=== PATIENT | male | born 1980 | race Caucasian/White ===

== ENCOUNTER 2018-04-30 15:37 | Emergency (ER) | payer OTHER, SELFPAY ==
[2018-04-30 15:38] VITALS: BP 138/86; PULSE 68; RESP 14; TEMP 37.3; O2SAT 100; BMI 22.5
--- NOTE | 2018-04-30 16:13 | ED.VISSUMM ---
- ER Visit Summary Date of Service: 04/30/18 Chief Complaint: Dizziness with multiple complaints History of Present Illness: The patient is a 37 M who presents for multiple complaints for the last 3 days. Patient states 3 days ago he had a syncopal episode while working at his computer. Afterwards he had a frontal headache that felt like pressure as well as dizziness. His head felt hot. He rested for the rest of the day and felt better 2 days ago. His headache returned later that day and he went to [facility] physicians for an evaluation. He was feeling better afterwards and was told he should be seen at the emergency department. He did not come in because he felt better. He felt fine until yesterday when he had a brief headache, that would last approximately 10-15 minutes. Still the frontal headache with pressure. Today patient developed dizziness 30 minutes prior to presentation. He also developed chest pain and shortness of breath. He is complaining currently of headache, chest pain, shortness of breath, neck pain, and dizziness. He has not had similar symptoms in the past. Medical history remarkable for panic attacks. He denies any personal or family history of coronary artery disease. No history of diabetes, hypertension, hypercholesterolemia. He does not use tobacco or drugs. He drinks 1 glass of wine today. Physical Examination: Vital signs: afebrile, hemodynamically stable, no hypoxia on room air General: well nourished, well developed, in no distress Skin: warm, dry, no rash, no pallor HEENT: normocephalic and atraumatic; PERRL, EOMI, moist mucous membranes no oropharyngeal lesions or exudates. Neck is supple, nontender, no lymphadenopathy, no meningismus Cardiovascular: regular rate and rhythm without murmurs, no peripheral edema, 2+ pulses all distal extremities Respiratory: No increased work of breathing, lungs are clear to auscultation bilaterally, no rales, rhonchi or wheezing Abdominal: Abdomen is soft, nontender with normoactive bowel sounds, no guarding or rebound, no masses MSK: Moves all extremities, no deformities, normal strength no edema Neuro: Awake and alert, oriented ?4. No facial droop, sensation and motor function intact and symmetric Test Results: Abnormal Lab Results 04/30/18 04/30/18 04/30/18 16:29 16:29 16:29 WBC 5.5 RBC 4.78 Hgb 14.8 Hct 43.1 MCV 90.2 MCH 31.0 MCHC 34.3 RDW 12.2 RDW Differential 39.4 Plt Count 107 L MPV 12.1 H Immature Gran % (Auto) 0.200 Neut % (Auto) 63.2 Lymph % (Auto) 28.3 [place] % (Auto) 6.4 Eos % (Auto) 1.5 Baso % (Auto) 0.4 Absolute Neuts (auto) 3.5 Absolute Lymphs (auto) 1.55 Total Counted Not Reportable PT 14.0 INR 1.1 APTT 32.1 D-Dimer Quant (PE/DVT) < 0.27 L Sodium 142 Potassium 4.3 Chloride 104 Carbon Dioxide 30.0 Anion Gap 8 BUN 15 Creatinine 1.17 Estim Creat Clear Calc 112.00 Est GFR (MDRD) Af Amer 90 Est GFR (MDRD) Non-Af 75 BUN/Creatinine Ratio 12.8 Glucose 124 H Lactic Acid Calcium 8.8 Total Bilirubin 0.40 AST 20 ALT 44 Alkaline Phosphatase 103 Troponin I < 0.015 Total Protein 7.2 Albumin 4.2 Globulin 3.0 Albumin/Globulin Ratio 1.4 Urine Color Urine Clarity Urine pH Ur Specific [place] Urine Protein Urine Glucose (UA) Urine Ketones Urine Occult Blood Urine Nitrite Urine Bilirubin Urine Urobilinogen Ur Leukocyte Esterase Urine RBC Urine WBC Ur Squamous Epith Cells Urine Bacteria Urine Mucus 04/30/18 04/30/18 16:29 17:40 WBC RBC Hgb Hct MCV MCH MCHC RDW RDW Differential Plt Count MPV Immature Gran % (Auto) Neut % (Auto) Lymph % (Auto) [place] % (Auto) Eos % (Auto) Baso % (Auto) Absolute Neuts (auto) Absolute Lymphs (auto) Total Counted PT INR APTT D-Dimer Quant (PE/DVT) Sodium Potassium Chloride Carbon Dioxide Anion Gap BUN Creatinine Estim Creat Clear Calc Est GFR (MDRD) Af Amer Est GFR (MDRD) Non-Af BUN/Creatinine Ratio Glucose Lactic Acid 1.4 Calcium Total Bilirubin AST ALT Alkaline Phosphatase Troponin I Total Protein Albumin Globulin Albumin/Globulin Ratio Urine Color Yellow Urine Clarity Clear Urine pH 6.5 Ur Specific [place] 1.015 Urine Protein Negative Urine Glucose (UA) Normal Urine Ketones Negative Urine Occult Blood Negative Urine Nitrite Negative Urine Bilirubin Negative Urine Urobilinogen Normal Ur Leukocyte Esterase Negative Urine RBC 0 SEEN Urine WBC 0 SEEN Ur Squamous Epith Cells 0 SEEN Urine Bacteria RARE Urine Mucus RARE Clinical Impression(s) from Imaging Studies Brain CT 04/30/18 16:09 IMPRESSION: Normal unenhanced CT scan of the brain. Electronically Signed: Vinicio Dominguez MD at 17:40 EDT , Service support , Chest X-Ray 04/30/18 17:15 IMPRESSION: No acute cardiopulmonary process. Electronically Signed: Noe Gongora, at 17:35 EDT Tel , Service support , Medications Given Discontinued Medications Diphenhydramine HCl (Benadryl) 25 mg IV X1 ONE Stop: 04/30/18 16:14 Last Admin: 04/30/18 17:56 Dose: 25 mg Sodium Chloride () 1,000 mls @ 1,000 mls/hr IV .Q1H ONE Stop: 04/30/18 17:08 Last Admin: 04/30/18 17:56 Dose: 1,000 mls/hr Ketorolac Tromethamine (Toradol) 15 mg IV X1 ONE Stop: 04/30/18 16:10 Last Admin: 04/30/18 17:56 Dose: 15 mg Metoclopramide HCl (Reglan) 10 mg IV X1 ONE Stop: 04/30/18 16:10 Last Admin: 04/30/18 17:56 Dose: 10 mg Emergency Department Course and Treatment: Patient presents with multiple vague complaints over the last 3 days, now with acute development of dizziness, chest pain and shortness of breath along with his headache. Workup was performed to evaluate for intracranial pathology, infectious pathology, cardiac pathology, and d-dimer to evaluate for possible pulmonary embolism. Patient has no risk factors for coronary artery disease and is low risk for PE. No recent travel or surgery, history of VTE or family history of same. D-dimer was negative. Troponin negative. EKG showed no ischemic changes or dysrhythmias. Labs were remarkable for chronic thrombocytopenia, no anemia or leukocytosis, no electrolyte derangements, no hepatic or renal derangements, urinalysis negative for infection, normal lactate. Chest x-ray showed no acute process and CT the head showed no intracranial hemorrhage or mass. Patient was given a migraine cocktail and had resolution of his headache afterwards. There was no underlying cause noted for his myriad of complaints other than possibly a viral syndrome. Patient was discharged home in improved condition with instructions for supportive care and return precautions. Treatment Plan: [] Disposition: [] Impression: Viral syndrome, headache (resolved) This note was generated with [employer] dictation software. It may contain incorrect words, spelling, and punctuation that were not noted in review of the chart prior to signing ED Disposition - Plan for ED Patient: Disposition: Home or Assisted Living Chief Complaint: General Illness Instructions: ED Cephalgia Unspecified, ED Viral Syndrome Referrals: Hiro Whitmore MD [Primary Care Provider] - 3-5 Days if not improving Additional Instructions: Use [id number] pain medications such as Tylenol or Motrin as needed for further headache, fever and other aches and pains. Drink plenty of fluids to stay hydrated. If you have any worsening of your condition or any new concerning symptoms, please return immediately to the emergency department for another evaluation.
--- NOTE | 2018-04-30 16:16 | ED.DCSUM_ITS ---
- ER Visit Summary Date of Service: 04/30/18 Chief Complaint: Dizziness with multiple complaints History of Present Illness: The patient is a 37 M who presents for multiple complaints for the last 3 days. Patient states 3 days ago he had a syncopal episode while working at his computer. Afterwards he had a frontal headache that felt like pressure as well as dizziness. His head felt hot. He rested for the rest of the day and felt better 2 days ago. His headache returned later that day and he went to [facility] physicians for an evaluation. He was feeling better afterwards and was told he should be seen at the emergency department. He did not come in because he felt better. He felt fine until yesterday when he had a brief headache, that would last approximately 10- 15 minutes. Still the frontal headache with pressure. Today patient developed dizziness 30 minutes prior to presentation. He also developed chest pain and shortness of breath. He is complaining currently of headache, chest pain, shortness of breath, neck pain, and dizziness. He has not had similar symptoms in the past. Medical history remarkable for panic attacks. He denies any personal or family history of coronary artery disease. No history of diabetes, hypertension, hypercholesterolemia. He does not use tobacco or drugs. He drinks 1 glass of wine today. Physical Examination: Vital signs: afebrile, hemodynamically stable, no hypoxia on room air General: well nourished, well developed, in no distress Skin: warm, dry, no rash, no pallor HEENT: normocephalic and atraumatic; PERRL, EOMI, moist mucous membranes no oropharyngeal lesions or exudates. Neck is supple, nontender, no lymphadenopathy, no meningismus Cardiovascular: regular rate and rhythm without murmurs, no peripheral edema, 2 + pulses all distal extremities Respiratory: No increased work of breathing, lungs are clear to auscultation bilaterally, no rales, rhonchi or wheezing Abdominal: Abdomen is soft, nontender with normoactive bowel sounds, no guarding or rebound, no masses MSK: Moves all extremities, no deformities, normal strength no edema Neuro: Awake and alert, oriented ?4. No facial droop, sensation and motor function intact and symmetric Test Results: Abnormal Lab Results 04/30/18 04/30/18 04/30/18 16:29 16:29 16:29 WBC 5.5 RBC 4.78 Hgb 14.8 Hct 43.1 MCV 90.2 MCH 31.0 MCHC 34.3 RDW 12.2 RDW Differential 39.4 Plt Count 107 L MPV 12.1 H Immature Gran % (Auto) 0.200 Neut % (Auto) 63.2 Lymph % (Auto) 28.3 [place] % (Auto) 6.4 Eos % (Auto) 1.5 Baso % (Auto) 0.4 Absolute Neuts (auto) 3.5 Absolute Lymphs (auto) 1.55 Total Counted Not Reportable PT 14.0 INR 1.1 APTT 32.1 D-Dimer Quant (PE/DVT) < 0.27 L Sodium 142 Potassium 4.3 Chloride 104 Carbon Dioxide 30.0 Anion Gap 8 BUN 15 Creatinine 1.17 Estim Creat Clear Calc 112.00 Est GFR (MDRD) Af Amer 90 Est GFR (MDRD) Non-Af 75 BUN/Creatinine Ratio 12.8 Glucose 124 H Lactic Acid Calcium 8.8 Total Bilirubin 0.40 AST 20 ALT 44 Alkaline Phosphatase 103 Troponin I < 0.015 Total Protein 7.2 Albumin 4.2 Globulin 3.0 Albumin/Globulin Ratio 1.4 Urine Color Urine Clarity Urine pH Ur Specific [place] Urine Protein Urine Glucose (UA) Urine Ketones Urine Occult Blood Urine Nitrite Urine Bilirubin Urine Urobilinogen Ur Leukocyte Esterase Urine RBC Urine WBC Ur Squamous Epith Cells Urine Bacteria Urine Mucus 04/30/18 04/30/18 16:29 17:40 WBC RBC Hgb Hct MCV MCH MCHC RDW RDW Differential Plt Count MPV Immature Gran % (Auto) Neut % (Auto) Lymph % (Auto) [place] % (Auto) Eos % (Auto) Baso % (Auto) Absolute Neuts (auto) Absolute Lymphs (auto) Total Counted PT INR APTT D-Dimer Quant (PE/DVT) Sodium Potassium Chloride Carbon Dioxide Anion Gap BUN Creatinine Estim Creat Clear Calc Est GFR (MDRD) Af Amer Est GFR (MDRD) Non-Af BUN/Creatinine Ratio Glucose Lactic Acid 1.4 Calcium Total Bilirubin AST ALT Alkaline Phosphatase Troponin I Total Protein Albumin Globulin Albumin/Globulin Ratio Urine Color Yellow Urine Clarity Clear Urine pH 6.5 Ur Specific [place] 1.015 Urine Protein Negative Urine Glucose (UA) Normal Urine Ketones Negative Urine Occult Blood Negative Urine Nitrite Negative Urine Bilirubin Negative Urine Urobilinogen Normal Ur Leukocyte Esterase Negative Urine RBC 0 SEEN Urine WBC 0 SEEN Ur Squamous Epith Cells 0 SEEN Urine Bacteria RARE Urine Mucus RARE Clinical Impression(s) from Imaging Studies Brain CT 04/30/18 16:09 IMPRESSION: Normal unenhanced CT scan of the brain. Electronically Signed: Vinicio Dominguez MD at 17:40 EDT , Service support , Chest X-Ray 04/30/18 17:15 IMPRESSION: No acute cardiopulmonary process. Electronically Signed: Noe Gongora, at 17:35 EDT Tel , Service support , Medications Given Discontinued Medications Diphenhydramine HCl (Benadryl) 25 mg IV X1 ONE Stop: 04/30/18 16:14 Last Admin: 04/30/18 17:56 Dose: 25 mg Sodium Chloride () 1,000 mls @ 1,000 mls/hr IV .Q1H ONE Stop: 04/30/18 17:08 Last Admin: 04/30/18 17:56 Dose: 1,000 mls/hr Ketorolac Tromethamine (Toradol) 15 mg IV X1 ONE Stop: 04/30/18 16:10 Last Admin: 04/30/18 17:56 Dose: 15 mg Metoclopramide HCl (Reglan) 10 mg IV X1 ONE Stop: 04/30/18 16:10 Last Admin: 04/30/18 17:56 Dose: 10 mg Emergency Department Course and Treatment: Patient presents with multiple vague complaints over the last 3 days, now with acute development of dizziness, chest pain and shortness of breath along with his headache. Workup was performed to evaluate for intracranial pathology, infectious pathology, cardiac pathology, and d-dimer to evaluate for possible pulmonary embolism. Patient has no risk factors for coronary artery disease and is low risk for PE. No recent travel or surgery, history of VTE or family history of same. D-dimer was negative. Troponin negative. EKG showed no ischemic changes or dysrhythmias. Labs were remarkable for chronic thrombocytopenia, no anemia or leukocytosis, no electrolyte derangements, no hepatic or renal derangements, urinalysis negative for infection, normal lactate. Chest x-ray showed no acute process and CT the head showed no intracranial hemorrhage or mass. Patient was given a migraine cocktail and had resolution of his headache afterwards. There was no underlying cause noted for his myriad of complaints other than possibly a viral syndrome. Patient was discharged home in improved condition with instructions for supportive care and return precautions. Treatment Plan: [] Disposition: [] Impression: Viral syndrome, headache (resolved) This note was generated with [employer] dictation software. It may contain incorrect words, spelling, and punctuation that were not noted in review of the chart prior to signing ED Disposition - Plan for ED Patient: Disposition: Home or Assisted Living Chief Complaint: General Illness Instructions: ED Cephalgia Unspecified, ED Viral Syndrome Referrals: Hiro Whitmore MD [Primary Care Provider] - 3-5 Days if not improving Additional Instructions: Use eric-xnf-[id number] pain medications such as Tylenol or Motrin as needed for further headache, fever and other aches and pains. Drink plenty of fluids to stay hydrated. If you have any worsening of your condition or any new concerning symptoms, please return immediately to the emergency department for another evaluation.
[2018-04-30 17:02] LABS: Absolute Lymphocyte Count 1.55 X10^3/ul (0.83-4.51); Absolute Neutrophil Count 3.5 X10^3/uL (2.0-7.7); Basophil# 0.02 X10^3/uL; Basophil% 0.4 % (0-1); Eosinophil# 0.08 X10^3/uL; Eosinophils% 1.5 % (0-5); Hematocrit 43.1 % (40-54); Hemoglobin 14.8 g/dl (13.0-16.5); Lymphocyte # 1.55 X10^3/ul (4.0); Lymphocyte % 28.3 % (19-41); Mean Corp Hgb Conc 34.3 g/gl (32-36); Mean Corpuscular Volume 90.2 fL (80-94); Mean Platelet Vol. 12.1 fl (6.2-12.0); Monocyte# 0.35 X10^3/uL; Monocyte% 6.4 % (0-10); Neutrophil # 3.46 X10^3/uL (2.7-7.7); Neutrophil % 63.2 % (47-70); POSITIVE COUNT NO; POSITIVE DIFFERENTIAL NO; POSITIVE MORPHOLOGY NO; Platelet Count 107 K/mm3 (150-450); RBC Distribution Width CV 12.2 % (11.6-14.6); RBC Distribution Width SD 39.4 fl (35.1-43.9); Red Blood Count 4.78 M/mm3 (4.6-6.2); White Blood Count 5.5 K/mm3 (4.4-11.0)
[2018-04-30 17:03] LABS: International Normalized Ratio 1.1
[2018-04-30 17:04] LABS: Partial Thromboplast Time 32.1 Seconds (24.1-36.2)
[2018-04-30 17:08] LABS: Lactic Acid 1.4 mmol/L (0.4-2.0)
[2018-04-30 17:17] LABS: ALB/GLOB Ratio 1.4 RATIO (0.9-2.4); AST(SGOT) 20 U/L (15-37); Alanine Aminotransfer ALT/SGPT 44 U/L (16-61); Albumin, Serum 4.2 g/dL (3.2-5.0); Alkaline Phosphatase 103 U/L (45-117); Anion Gap 8 (5-15); BUN 15 mg/dL (7-18); BUN/Creat Ratio 12.8 RATIO (10-20); Calcium,Total 8.8 mg/dL (8.5-10.1); Chloride 104 mmol/L (98-107); Creatinine, Serum 1.17 mg/dL (0.70-1.30); EST Glomerular Filtration Rate 75 mL/min (>60); Est Glom Filt Rate - Afr Amer 90 mL/min (>60); Glucose 124 mg/dL (74-106); Potassium 4.3 mmol/L (3.5-5.1); Protein, Total 7.2 g/dL (6.4-8.2); Sodium Level 142 mmol/L (136-145)
[2018-04-30 17:18] LABS: D-Dimer Quantitative (DVT/PE) < 0.27 FEU/ug/m (0.27-0.49)
[2018-04-30 17:49] LABS: Red Blood Cells-Urine 0 SEEN /hpf (0-5); Squamous Epithelial Cells - UA 0 SEEN /hpf (0-5); White Blood Cells 0 SEEN /hpf (0-5)
[2018-04-30] MEDS: Metoclopramide 10 MG/2 ML Vial IV (17:56)
[2018-04-30] MEDS: DiphenhydrAMINE 50 MG/ML Syringe 25 MG IV (17:56)
[2018-04-30] MEDS: Ketorolac 15 MG/ML Vial IV (17:56)
[2018-04-30] MEDS: 0.9% Normal Saline 1,000 ML 1000 ML IV (17:56)
[2018-04-30 17:58] VITALS: BP 130/76; PULSE 60; RESP 16; O2SAT 99
[2018-04-30 18:06] LABS: Color, Urine Yellow (Yellow); Glucose, Dipstick Normal (Normal); Ketone-Dipstick Negative (Negative); Leukocyte Esterase-Dipstick Negative /ul (Negative); Nitrite-Dipstick Negative (Negative); Occult Blood-Urine Negative /ul (Negative); Protein-Dipstick Negative (Negative); Specific Gravity, Urine 1.015 (1.002-1.030); Urine Bilirubin Dipstick Negative (Negative); Urine Clarity Clear (Clear); Urine Urobilinogen Normal (Normal); Urine pH 6.5 (5.0 - 8.0)
[2018-04-30 18:16] LABS: Bacteria RARE /hpf (None Seen); Mucous, Urine RARE /hpf (<or=2+)
[2018-04-30 19:00] VITALS: BP 122/64; PULSE 65; RESP 15; O2SAT 99
--- NOTE | 2018-04-30 19:34 | ED.DEP ---
ED Disposition - Plan for ED Patient: Disposition: Home or Assisted Living Chief Complaint: General Illness Instructions: ED Viral Syndrome, ED Cephalgia Unspecified Referrals: Hiro Whitmore MD [Primary Care Provider] - 3-5 Days if not improving Additional Instructions: Use [id number] pain medications such as Tylenol or Motrin as needed for further headache, fever and other aches and pains. Drink plenty of fluids to stay hydrated. If you have any worsening of your condition or any new concerning symptoms, please return immediately to the emergency department for another evaluation.
[2018-04-30 19:56] VITALS: BP 128/67; PULSE 64; RESP 17
== END 2018-04-30 19:57 | disposition home or self-care (01) ==
PROVIDERS: Emergency Provider Emergency Medicine; Family Provider Family Medicine; PCP Family Medicine
DX: B34.9 Viral infection, unspecified (principal); R51 Headache; R55 Syncope and collapse; R07.9 Chest pain, unspecified; R06.00 Dyspnea, unspecified; M54.2 Cervicalgia; D69.6 Thrombocytopenia, unspecified; F41.0 Panic disorder [episodic paroxysmal anxiety]
CPT/HCPCS: 70450; 71046; 80053; 81001; 83605; 84484; 85025; 85379; 85610; 85730; 93005; 96361; 96374; 96375; 99284; J7030; A4216

== ENCOUNTER → 2018-05-02 15:57 | Outpatient (CLI) | payer OTHER, SELFPAY ==
[2018-05-02 18:01] LABS: Internal QC Validated? YES +Cl - CLEAR BKGD; Monotest Negative (Negative); Record Kit Lot#, Mono 13171517
[2018-05-02 18:13] LABS: Vitamin B12 244 pg/mL (211-911); Vitamin D,25 Hydroxy 18.3 ng/mL (29.95-100.01)
[2018-05-02 18:16] LABS: ALB/GLOB Ratio 1.4 RATIO (0.9-2.4); AST(SGOT) 25 U/L (15-37); Alanine Aminotransfer ALT/SGPT 45 U/L (16-61); Albumin, Serum 4.3 g/dL (3.2-5.0); Alkaline Phosphatase 98 U/L (45-117); Anion Gap 7 (5-15); BUN 13 mg/dL (7-18); BUN/Creat Ratio 13.9 RATIO (10-20); CRP < 2.90 mg/L (0.0-3.0); Calcium,Total 8.6 mg/dL (8.5-10.1); Chloride 105 mmol/L (98-107); Creatinine, Serum 0.93 mg/dL (0.70-1.30); EST Glomerular Filtration Rate 97 mL/min (>60); Est Glom Filt Rate - Afr Amer 117 mL/min (>60); Glucose 80 mg/dL (74-106); Protein, Total 7.3 g/dL (6.4-8.2); Sodium Level 141 mmol/L (136-145); Thyroid Stim Hormone (TSH) 1.17 uIU/mL (0.358-3.74)
[2018-05-02 19:38] LABS: Absolute Lymphocyte Count 1.61 X10^3/ul (0.83-4.51); Absolute Neutrophil Count 2.8 X10^3/uL (2.0-7.7); Basophil# 0.01 X10^3/uL; Basophil% 0.2 % (0-1); Hematocrit 44.3 % (40-54); Lymphocyte # 1.61 X10^3/ul (4.0); Lymphocyte % 32.8 % (19-41); Mean Corp Hgb Conc 33.9 g/gl (32-36); Mean Corpuscular Hgb 31.2 pg (27.0-32.0); Mean Corpuscular Volume 92.1 fL (80-94); Mean Platelet Vol. 11.9 fl (6.2-12.0); Monocyte# 0.35 X10^3/uL; Monocyte% 7.1 % (0-10); Neutrophil # 2.83 X10^3/uL (2.7-7.7); Neutrophil % 57.7 % (47-70); Platelet Count 106 K/mm3 (150-450); RBC Distribution Width CV 12.2 % (11.6-14.6); RBC Distribution Width SD 41.1 fl (35.1-43.9); Red Blood Count 4.81 M/mm3 (4.6-6.2); White Blood Count 4.9 K/mm3 (4.4-11.0)
[2018-05-02 19:47] LABS: POSITIVE COUNT NO; POSITIVE DIFFERENTIAL NO; POSITIVE MORPHOLOGY NO
[2018-05-02 20:32] LABS: Erythrocyte Sedimentation Rate 1 mm/hr (0-15)
[2018-05-07 12:07] LABS: Lyme IgG P18 Ab Absent (.); Lyme IgG P23 Ab Absent (.); Lyme IgG P28 Ab Absent (.); Lyme IgG P30 Ab Absent (.); Lyme IgG P39 Ab Absent (.); Lyme IgG P41 Ab Absent (.); Lyme IgG P45 Ab Absent (.); Lyme IgG P58 Ab Absent (.); Lyme IgG P66 Ab Absent (.); Lyme IgG P93 Ab Absent (.); Lyme IgM P23 Ab Absent (.); Lyme IgM P39 Ab Absent (.); Lyme IgM P41 Ab Absent (.)
[2018-05-09 12:00] LABS: EBV Acute VCA IgM < 36.0 U/mL (0.0-35.9); EBV-VCA IgG > 600.0 U/mL (0.0-17.9); Lyme IgG WB Interpretation Negative (.); Lyme IgM WB Interpretation Negative (.)
== END ==
PROVIDERS: Family Provider Family Medicine; PCP Family Medicine; Visit Provider Family Medicine
DX: R53.83 Other fatigue (principal)
CPT/HCPCS: 36415; 80053; 82306; 82607; 84443; 85025; 85652; 86140; 86308; 86617; 86663; 86664; 86665

== ENCOUNTER → 2018-07-17 10:00 | Outpatient (CLI) | payer OTHER, SELFPAY ==
--- NOTE | 2018-07-13 10:00 | LES_PTH ---
PATIENT: GLENYS LOOMIS LOC: [facility] U#:[id number] AGE/SX: 45/M ROOM: RE07/17/[address]: Dr. Isai Whitmore MD : 1980 BED: DIS: SPEC #: [id number] RECD: 07/17/18 14:01 STATUS: SUZAN ARSEN #: [id number] LC: 07/13/18 10:[address]: Isai Whitmore DEPT: SURGICAL PATHOLOGY RECD BY: Carli Calderon Tissues: Skin of chest Procedures: Surgery Specimen Level IV HEADER OPERATION: Right chest mole excision PRE-OP DIAGNOSIS: Mole changes, rule out melanoma TISSUE SUBMITTED: Right chest mole excision MICROSCOPIC DIAGNOSIS Right chest mole, excision: Inflamed junctional nevus, completely excised in the planes of sections examined. SJ:kwesi 07/18/18 MICROSCOPIC DESCRIPTION Slides are reviewed. GROSS DESCRIPTION Received in fixative is one container labeled with the patient's name and designated right chest mole. The specimen consists of a piece of pelaez-white skin measuring 0.7 x 0.5 cm and up to 0.2 cm in thickness. The skin surface shows a brown round lesion measuring 0.2 cm in greatest dimension. The specimen is inked and submitted entirely in one cassette. It will be sectioned at the time of embedding. / SJ:rg 07/17/18 TC:1 CPT: 26849 ADDENDUM ADDENDUM ADDENDUM ADDENDUM ADDENDUM ADDENDUM 07/25/2018 10:27 ADDENDUM 07/25/2018 10:27 ADDENDUM 07/25/2018 10:27 ADDENDUM 07/25/2018 10:27 ADDENDUM 07/25/2018 10:27 During QC review [address] Steele, the lesion is favored as atypical junctional nevus (mild architectural atypia), completely excised in the planes of sections examined. SJ:kwesi 07/25/18
== END ==
PROVIDERS: Family Provider Family Medicine; PCP Family Medicine; Referring Provider Family Medicine; Visit Provider Family Medicine
DX: D22.5 Melanocytic nevi of trunk (principal)
CPT/HCPCS: 88305

== ENCOUNTER → 2018-08-07 08:19 | Outpatient (CLI) | payer OTHER, SELFPAY ==
[2018-08-07 11:09] LABS: Vitamin B12 432 pg/mL (211-911); Vitamin D,25 Hydroxy 26.7 ng/mL (29.95-100.01)
--- OUTSIDE RECORDS SUMMARY | 2018-09-23 06:12 | XMS RPT_ITS ---
:1980 Author Organization OHIP Care Team Providers Name Role Phone Isai Whitmore Attending Unavailable Isai Whitmore Primary Care Unavailable Isai Whitmore Attending Unavailable Isai Whitmore Referring Unavailable Isai Whitmore Primary Care Unavailable Isai Whitmore Attending Unavailable Isai Whitmore Primary Care Unavailable Isai Whitmore Primary Care Unavailable Shanon Evans Attending Unavailable PROBLEMS PROBLEMS No Problem Records FoundPROCEDURES PROCEDURES No Procedure Records FoundRESULTS RESULTS VITAMIN B12 Collected: 08/07/2018 Status: F Source: [place] 8:20 AM [facility] [place] REPOSITORY Order Comment: Order Date: 05/10/18 Order Info: 2132-9 - B12 Order Info: 13417-1 - VITD25 TYPE CODE TESTS RESULT OUT OF RANGE REFERENCE UNITS LAB L503.0105 211-911 pg/mL Normal Vitamin B12 432 Performed By: #### L503.0105, L506.1000 #### [place] [facility] [address] [place], [address] VITAMIN D,25 HYDROXY Collected: 08/07/2018 Status: F Source: [place] 8:20 AM [facility] [place] REPOSITORY Order Comment: Order Date: 05/10/18 Order Info: 2132-9 - B12 Order Info: 31467-7 - VITD25 TYPE CODE TESTS RESULT OUT OF REFERENCE UNITS RANGE LAB L506.1000 29.95-100.01 ng/mL Low Vitamin D 26.7 25-OH Result Comment: Vitamin D 25(OH) Status Range Deficiency <20 ng/mL (50nmol/L) Insuffciency 20 - 30 ng/mL (50 - 75 nmol/L) Sufficiency 30 - 100 ng/mL (75 - 250 nmol/L) Toxicity >100 ng/mL (>250 nmol/L) Performed By: #### L503.0105, L506.1000 #### [facility] [address] [place], [address] LESION (CHOOSE SITE) Observed: 07/13/2018 Status: F Source: [place] 10:00 AM [facility] [place] REPOSITORY Patient: GLENYS LOOMIS : 1980 (38/M) Acct Num: [id number] Phys: Myranda MORILLO,Golden Unit Num: [id number] Loc: LABSPEC Specimen: [id number] Received: 07/17/18 - 1401 Spec Type: Lesion TISSUES 1 TISSUES: Skin of chest ADDENDUM Addendum Number 1 During QC review [address] Dr[address] Steele, the lesion is favored as atypical junctional nevus (mild architectural atypia), completely excised in the planes of sections examined. SRUTHI:kwesi 07/25/18 Addendum Signed Feliberto Richardson 07/25/18 <signature on file> GROSS DESCRIPTION Received in fixative is one container labeled with the patient's name and designated right chest mole. The specimen consists of a piece of pelaez-white skin measuring 0.7 x 0.5 cm and up to 0.2 cm in thickness. The skin surface shows a brown round lesion measuring 0.2 cm in greatest dimension. The specimen is inked and submitted entirely in one cassette. It will be sectioned at the time of embedding. / SRUTHI:kwesi 07/17/18 TC:1 CPT: 90415 HEADER OPERATION: Right chest mole excision PRE-OP DIAGNOSIS: Mole changes, rule out melanoma TISSUE SUBMITTED: Right chest mole excision MICROSCOPIC DESCRIPTION Slides are reviewed. MICROSCOPIC DIAGNOSIS Right chest mole, excision: Inflamed junctional nevus, completely excised in the planes of sections examined. SJ:kwesi 07/18/18 Signed Feliberto Dylan 07/18/18 <signature on file> Performed By: #### PLES #### [facility] [address] [place], [address] MONOTEST Collected: 05/02/2018 Status: F Source: [place] 4:00 PM [facility] REPOSITORY TYPE CODE TESTS RESULT OUT OF RANGE REFERENCE UNITS LAB L700.5700 Negative Normal MONO Negative Performed By: #### L700.5500 #### [facility] [address] [place], [address] VITAMIN B12 Collected: 05/02/2018 Status: F Source: [place] 4:00 PM [facility] REPOSITORY TYPE CODE TESTS RESULT OUT OF RANGE REFERENCE UNITS LAB L503.0105 211-911 pg/mL Normal Vitamin B12 244 Performed By: #### L503.0105, L506.1000 #### [facility] [address] [place], [address] VITAMIN D,25 HYDROXY Collected: 05/02/2018 Status: F Source: [place] 4:00 PM [facility] REPOSITORY TYPE CODE TESTS RESULT OUT OF REFERENCE UNITS RANGE LAB L506.1000 29.95-100.01 ng/mL Low Vitamin D 18.3 25-OH Result Comment: Vitamin D 25(OH) Status Range Deficiency <20 ng/mL (50nmol/L) Insuffciency 20 - 30 ng/mL (50 - 75 nmol/L) Sufficiency 30 - 100 ng/mL (75 - 250 nmol/L) Toxicity >100 ng/mL (>250 nmol/L) Performed By: #### L503.0105, L506.1000 #### [facility] [place], [address] COMPREHENSIVE METABOLIC Collected: 05/02/2018 Status: F Source: [place] COPE 4:00 PM [facility] REPOSITORY TYPE CODE TESTS RESULT OUT OF RANGE REFERENCE UNITS LAB L501.0100 74-106 mg/dL Normal GLU 80 Result Comment: Please note revised GLUCOSE reference range effective 2017. LAB L501.1000 7-18 mg/dL Normal BUN 13 LAB L501.1100 0.70-1.30 mg/dL Normal CREAT,SERUM 0.93 Result Comment: The validity of the calculated GFR AND GFRAA in patients over 70 years has not been determined. Clinical correlation is essential. LAB L501.1110 >60 mL/min Normal EST GFR 97 Result Comment: Non- GFR Calc LAB L501.1115 >60 mL/min Normal EST GFR - AA 117 Result Comment: GFR Calc LAB L501.1300 10-20 RATIO Normal BUN/CRE 13.9 LAB L501.1500 6.4-8.2 g/dL T Normal PROT 7.3 LAB L501.1800 3.2-5.0 g/dL Normal ALB 4.3 LAB L501.1950 2.2-4.2 g/dL Normal GLOB 3.0 LAB L501.2000 0.9-2.4 RATIO Normal A/G 1.4 LAB L501.2200 8.5-10.1 mg/dL CA Normal 8.6 LAB L501.4100 15-37 U/L Normal AST 25 LAB L501.4305 45-117 U/L Normal ALK P 98 LAB L501.4405 16-61 U/L Normal ALT 45 LAB L501.4600 0.20-1.00 mg/dL T Normal BILI 0.60 LAB L501.5300 136-145 mmol/L NA Normal 141 LAB L501.5600 3.5-5.1 mmol/L K Normal 4.0 LAB L501.5900 98-107 mmol/L CL Normal 105 LAB L501.6100 21.0-32.0 mmol/L Normal CO2 29.0 LAB L501.6200 5-15 Normal GAP 7 Performed By: #### L500.4050, L501.6778, L501.6347 #### [facility] [address] [facility]. [place], [place], [address] CRP Collected: 05/02/2018 Status: F Source: [place] 4:00 PM [facility] REPOSITORY TYPE CODE TESTS RESULT OUT OF RANGE REFERENCE UNITS LAB L501.6710 0.0-3.0 mg/L Normal < 2.90 C-REACTIVE PROT Result Comment: C-Reactive Protein (CRP) provides useful information for the diagnosis, therapy and monitoring of inflammatory processes and associated diseases. For the evaluation of Relative Risk for Cardiovascular Disease, a High Sensitivity CRP (HSCRP) should be ordered. Performed By: #### L500.4050, L501.6710, L501.9520 #### [facility] [place], [place], [id number] THYROID STIM HORMONE Collected: 05/02/2018 Status: F Source: [place] (TSH) 4:00 PM [facility] REPOSITORY TYPE CODE TESTS RESULT OUT OF RANGE REFERENCE UNITS LAB L501.9520 0.358-3.74 uIU/mL Normal TSH 1.17 Performed By: #### L500.4050, L501.6710, L501.9520 #### [facility] [address] [place] [address], [id number] CBC W/DIFF, AUTOMATED Collected: 05/02/2018 Status: F Source: [place] 4:00 PM [facility] REPOSITORY TYPE CODE TESTS RESULT OUT OF RANGE REFERENCE UNITS LAB L100.1000 4.4-11.0 K/mm3 Normal WBC 4.9 LAB L100.1200 4.6-6.2 M/mm3 Normal RBC 4.81 LAB L100.1300 13.0-16.5 g/dl Normal HGB 15.0 LAB L100.1400 40-54 % Normal HCT 44.3 LAB L100.1500 80-94 fL Normal MCV 92.1 LAB L100.1600 27.0-32.0 pg Normal MCH 31.2 LAB L100.1700 32-36 g/gl Normal MCHC 33.9 LAB L100.1810 11.6-14.6 % Normal RDW CV 12.2 LAB L100.1820 35.1-43.9 fl Normal RDW SD 41.1 LAB L100.1900 150-450 K/mm3 Low PLT 106 LAB L100.2000 6.2-12.0 fl Normal MPV 11.9 LAB L100.2100 47-70 % Normal NEUT% 57.7 LAB L100.2200 19-41 % Normal LY% 32.8 LAB L100.2300 0-10 % Normal MONO% 7.1 LAB L100.2400 0-5 % Normal EO% 2.0 LAB L100.2500 0-1 % Normal BASO% 0.2 LAB L100.2550 0.0-0.9 % Normal IM GRAN % 0.200 Result Comment: IG% - Immature Granulocytes (promyelocytes, myelocytes and metamyelocytes) > 1% indicates that a LEFT SHIFT is Present. LAB L100.2620 2.0-7.7 X10 3/uL Normal Absolute Neut 2.8 LAB L100.2720 0.83-4.51 X10 3/ul Normal Absolute Lymph 1.61 Performed By: #### L100.0100, L101.9900 #### [facility] [address] [place], [place], [id number] ERYTHROCYTE SED RATE Collected: 05/02/2018 Status: F Source: [place] 4:00 PM [facility] REPOSITORY TYPE CODE TESTS RESULT OUT OF RANGE REFERENCE UNITS LAB L102.0000 0-15 mm/hr Normal SED RATE 1 Performed By: #### L100.0100, L101.9900 #### [facility] [address] [place], [place], [address] EBV ACUTE PROF IGG Collected: 05/02/2018 Status: F Source: [place] / IGM 4:00 PM [facility] REPOSITORY TYPE CODE TESTS RESULT OUT OF RANGE REFERENCE UNITS LAB L3100.5900 0.0-35.9 U/mL Normal EB-VCA < 36.0 [id number] Result Comment: Negative <36.0 Equivocal 36.0 - 43.9 Positive >43.9 LAB L3100.6000 0.0-8.9 U/mL High EB-EA IgG 47.0 [id number] Result Comment: Hepatitis A, Hepatitis C and HIV antibodies may cross-react with this assay. Negative < 9.0 Equivocal 9.0 - 10.9 Positive >10.9 LAB L3100.6100 0.0-17.9 U/mL High EB-VCA > [id number] 600.0 Result Comment: Negative <18.0 Equivocal 18.0 - 21.9 Positive >21.9 LAB L3100.6200 0.0-17.9 U/mL High EB-NAg 435.0 [id number] Result Comment: Negative <18.0 Equivocal 18.0 - 21.9 Positive >21.9 LAB L3100.6300 . INTERPRETATION Normal Comment Result Comment: EBV Interpretation Chart Interpretation EBV-IgM EA(D)-IgG VCA-IgG EBNA-IgG EBV Seronegative - - - - Early Phase + - - - Acute Primary + +or- + - Infection Convalescence/Past - +or- + + Infection Reactivated +or- + + + Infection + Antibody Present - Antibody Absent Performed at: - [facility] [id number] Cabinet Builder: Joe Pineda MD, Phone: [phone] Performed at: [facility] [id number] Cabinet Builder: Jame Kat PhD, Phone: [phone] Performed By: #### L3100.5850, L7000.3175 #### [facility] (refer to report for specific site) refer to report for address and phone number LYME ANTIBODIES,W BLOT Collected: 05/02/2018 Status: F Source: [place] 4:00 PM [facility] REPOSITORY TYPE CODE TESTS RESULT OUT OF RANGE REFERENCE UNITS LAB L7000.5920 . Normal P93 Ab Absent LAB L7000.5940 . Normal P66 Ab Absent LAB L7000.5960 . Normal P58 Ab Absent LAB L7000.5980 . Normal P45 Ab Absent LAB L7000.6000 . Normal P41 Ab Absent LAB L7000.6020 . Normal P39 Ab Absent LAB L7000.6040 . Normal P30 Ab Absent LAB L7000.6060 . Normal P28 Ab Absent LAB L7000.6080 . Normal P23 Ab Absent LAB L7000.6100 . Normal P18 Ab Absent LAB L7000.6200 . Normal LYME IgG Negative INTERP Result Comment: Positive: 5 of the following Borrelia-specific bands: 18,23,28,30,39,41,45,58, 66, and 93. Negative: No bands or banding patterns which do not meet positive criteria. LAB L7000.6320 . Normal P41 Ab Absent LAB L7000.6340 . Normal P39 Ab Absent LAB L7000.6360 . Normal P23 Ab Absent LAB L7000.6400 . Normal LYME IgM Negative INTERP Result Comment: Note: An equivocal or positive EIA result followed by a negative Western Blot result is considered NEGATIVE. An equivocal or positive EIA result followed by a positive Western Blot is considered POSITIVE by the CDC. Positive: 2 of the following bands: 23,39 or 41 Negative: No bands or banding patterns which do not meet positive criteria. Criteria for positivity are those recommended by CDC/ASTPHLD. p23=Osp C, f77=nzncalfpf Note: Sera from individuals with the following may cross react in the [place] Western Blot assays: other spirochetal diseases (periodontal disease, leptospirosis, relapsing fever, yaws, and pinta); connective autoimmune (Rheumatoid Arthritis and Systemic Lupus Erythematosus and also individuals with Antinuclear Antibody); other infections ([place] Spotted Fever; Butch-Bejarano Virus, and Cytomegalovirus). Performed By: #### L3100.5850, L7000.5800 #### [facility] (refer to report for specific site) refer to report for address and phone number 12 LEAD ELECTROCARDIOGRAM Observed: 05/02/2018 Status: F Source: [place] 1:04 PM [facility] REPOSITORY [facility] Cardiovascular Services [address] [place] [id number] 12 Lead EKG 04/30/18 1543 MR#: [id number] Acct: [id number] Name: GLENYS LOOMIS Rep #: [id number] : 1980 37 From: Dany Cameron MD Attending Dr: Status: DEP ER Ordering Dr: Shanon Evans MD Date: 04/30/18 Location: ED Sex: M C Admitted: Test Reason : CP Blood Pressure : / mmHG Vent. Rate : 057 BPM Atrial Rate : 057 BPM P-R Int : 148 ms QRS Dur : 094 ms QT Int : 408 ms P-R-T Axes : 079 087 070 degrees QTc Int : 397 ms Sinus bradycardia with sinus arrhythmia Otherwise normal ECG Confirmed by NISHA MORILLO, DANY ([id number]), slot editor PAZ LEOS ([id number]) on 05/02/2018 1:03:52 PM Referred By: MERLE Confirmed By:DANY CAMERON MD 05/02/18 1303 Date Dany Cameron MD CC: Isai Whitmore MD; Shanon Evans MD Signed EMERGENCY DEPARTMENT Observed: 04/30/2018 Status: F Source: [place] SUMMARY 11:52 PM [facility] REPOSITORY [facility] Medical Records Department [address] [place] [address] Emergency Department Summary 04/30/18 1613 MR#: [id number] Acct: [id number] Name: GLENYS LOOMIS Rep #: [id number] : 1980 37 From: Shanon Evans MD PCP: Isai Whitmore MD Status: DEP ER - ER Visit Summary Date of Service: 04/30/18 Chief Complaint: Dizziness with multiple complaints History of Present Illness: The patient is a 37 M who presents for multiple complaints for the last 3 days. Patient states 3 days ago he had a syncopal episode while working at his computer. Afterwards he had a frontal headache that felt like pressure as well as dizziness. His head felt hot. He rested for the rest of the day and felt better 2 days ago. His headache returned later that day and he went to [facility] for an evaluation. He was feeling better afterwards and was told he should be seen at the emergency department. He did not come in because he felt better. He felt fine until yesterday when he had a brief headache, that would last approximately 10-15 minutes. Still the frontal headache with pressure. Today patient developed dizziness 30 minutes prior to presentation. He also developed chest pain and shortness of breath. He is complaining currently of headache, chest pain, shortness of breath, neck pain, and dizziness. He has not had similar symptoms in the past. Medical history remarkable for panic attacks. He denies any personal or family history of coronary artery disease. No history of diabetes, hypertension, hypercholesterolemia. He does not use tobacco or drugs. He drinks 1 glass of wine today. Physical Examination: Vital signs: afebrile, hemodynamically stable, no hypoxia on room air General: well nourished, well developed, in no distress Skin: warm, dry, no rash, no pallor HEENT: normocephalic and atraumatic; PERRL, EOMI, moist mucous membranes no oropharyngeal lesions or exudates. Neck is supple, nontender, no lymphadenopathy, no meningismus Cardiovascular: regular rate and rhythm without murmurs, no peripheral edema, 2+ pulses all distal extremities Respiratory: No increased work of breathing, lungs are clear to auscultation bilaterally, no rales, rhonchi or wheezing Abdominal: Abdomen is soft, nontender with normoactive bowel sounds, no guarding or rebound, no masses MSK: Moves all extremities, no deformities, normal strength no edema Neuro: Awake and alert, oriented 4. No facial droop, sensation and motor function intact and symmetric Test Results: Abnormal Lab Results Clinical Impression(s) from Imaging Studies Brain CT 04/30/18 16:09 IMPRESSION: Normal unenhanced CT scan of the brain. Electronically Signed: Vinicio Dominguez MD at 17:40 EDT , Service support , Chest X-Ray 04/30/18 17:15 IMPRESSION: No acute cardiopulmonary process. Electronically Signed: Noe Gongora at 17:35 EDT Tel , Service support , Medications Given Discontinued Medications Diphenhydramine HCl (Benadryl) 25 mg IV X1 ONE Stop: 04/30/18 16:14 Last Admin: 04/30/18 17:56 Dose: 25 mg Sodium Chloride () 1,000 mls @ 1,000 mls/hr IV .Q1H ONE Stop: 04/30/18 17:08 Last Admin: 04/30/18 17:56 Dose: 1,000 mls/hr Ketorolac Tromethamine (Toradol) 15 mg IV X1 ONE Stop: 04/30/18 16:10 Last Admin: 04/30/18 17:56 Dose: 15 mg Metoclopramide HCl (Reglan) 10 mg IV X1 ONE Stop: 04/30/18 16:10 Last Admin: 04/30/18 17:56 Dose: 10 mg Emergency Department Course and Treatment: Patient presents with multiple vague complaints over the last 3 days, now with acute development of dizziness, chest pain and shortness of breath along with his headache. Workup was performed to evaluate for intracranial pathology, infectious pathology, cardiac pathology, and d-dimer to evaluate for possible pulmonary embolism. Patient has no risk factors for coronary artery disease and is low risk for PE. No recent travel or surgery, history of VTE or family history of same. D-dimer was negative. Troponin negative. EKG showed no ischemic changes or dysrhythmias. Labs were remarkable for chronic thrombocytopenia, no anemia or leukocytosis, no electrolyte derangements, no hepatic or renal derangements, urinalysis negative for infection, normal lactate. Chest x-ray showed no acute process and CT the head showed no intracranial hemorrhage or mass. Patient was given a migraine cocktail and had resolution of his headache afterwards. There was no underlying cause noted for his myriad of complaints other than possibly a viral syndrome. Patient was discharged home in improved condition with instructions for supportive care and return precautions. Treatment Plan: [] Disposition: [] Impression: Viral syndrome, headache (resolved) This note was generated with [employer] dictation software. It may contain incorrect words, spelling, and punctuation that were not noted in review of the chart prior to signing ED Disposition - Plan for ED Patient: Disposition: Home or Assisted Living Chief Complaint: General Illness Instructions: ED Cephalgia Unspecified, ED Viral Syndrome Referrals: Hiro Whitmore MD [Primary Care Provider] - 3-5 Days if not improving Additional Instructions: Use chbk-uef-hmreqlh pain medications such as Tylenol or Motrin as needed for further headache, fever and other aches and pains. Drink plenty of fluids to stay hydrated. If you have any worsening of your condition or any new concerning symptoms, please return immediately to the emergency department for another evaluation. What to do if you have Problems For any increased pain, shortness of breath, bleeding, nausea or vomiting, chest pain, or any unexpected problems, contact your Primary Care Provider. Call [facility] ([phone]) or report to the closest Emergency Room. Call 911 if necessary. 04/30/18 2352 <Electronically signed by Shanon Evans MD> Date Shanon Evans MD Cosigner Signature (If Indicated): Date CC: Isai Whitmore MD DISCHARGE INSTRUCTION Observed: 04/30/2018 Status: F Source: [place] 10:45 PM [facility] REPOSITORY [facility] Medical Records Department [address] [place] [address] Discharge Instruction 04/30/18 1934 MR#: [id number] Acct: [id number] Name: EBONIEGLENYS Payal Rep #: [id number] : 1980 37 From: Shanon Evans MD PCP: Isai Whitmore MD Status: DEP ER ED Disposition - Plan for ED Patient: Disposition: Home or Assisted Living Chief Complaint: General Illness Instructions: ED Viral Syndrome, ED Cephalgia Unspecified Referrals: Hiro Whitmore MD [Primary Care Provider] - 3-5 Days if not improving Additional Instructions: Use qhfm-rfv-eyeytid pain medications such as Tylenol or Motrin as needed for further headache, fever and other aches and pains. Drink plenty of fluids to stay hydrated. If you have any worsening of your condition or any new concerning symptoms, please return immediately to the emergency department for another evaluation. What to do if you have Problems For any increased pain, shortness of breath, bleeding, nausea or vomiting, chest pain, or any unexpected problems, contact your Primary Care Provider. Call [facility] ([phone]) or report to the closest Emergency Room. Call 911 if necessary. 04/30/18 2245 <Electronically signed by Shanon Evans MD> Date Shanon Kingignjuan r Signature (If Indicated): Date CC: Isai Whitmore MD URINALYSIS, COMPLETE Collected: 04/30/2018 Status: F Source: [place] 5:40 PM [facility] REPOSITORY Order Comment: Order Date: 04/30/18 How was Urine Obtained? CLEAN CATCH TYPE CODE TESTS RESULT OUT OF RANGE REFERENCE UNITS LAB L400.3000 Yellow COLOR Normal Yellow LAB L400.3050 Clear Normal CLARITY Clear LAB L400.3200 Normal mg/dl Normal GLUCOSE, UR Normal LAB L400.3300 Negative mg/dL Normal BILIRUBIN URINE Negative LAB L400.3400 Negative mg/dl Normal KETONE UR Negative LAB L400.3465 1.002-1.030 Normal SP.GR. DIPSTX 1.015 LAB L400.3550 5.0 - 8.0 pH UR Normal 6.5 LAB L400.3600 Negative mg/dl PROT Normal DIPSTX Negative LAB L400.3700 Normal mg/dl Normal UROBILI Normal LAB L400.3750 Negative Normal NITRITE UR Negative LAB L400.3780 Negative /ul Normal OCCULT BLOOD-UR Negative LAB L400.3800 Negative /ul LEUK Normal ESTERASE Negative LAB L400.4050 0-5 /hpf WBC 0 Normal SEEN LAB L400.4100 0-5 /hpf 0 Normal RBC-UA SEEN LAB L400.4150 0-5 /hpf SQUAM 0 Normal EPI SEEN LAB L400.4300 None Seen /hpf Normal BACTERIA RARE LAB L400.4350 <or=2+ /hpf Normal MUCUS, URINE RARE Performed By: #### L400.0001 #### [facility] [place], [place], [id number] CBC W/DIFF, AUTOMATED Collected: 04/30/2018 Status: F Source: [place] 4:29 PM [facility] REPOSITORY TYPE CODE TESTS RESULT OUT OF RANGE REFERENCE UNITS LAB L100.1000 4.4-11.0 K/mm3 Normal WBC 5.5 LAB L100.1200 4.6-6.2 M/mm3 Normal RBC 4.78 LAB L100.1300 13.0-16.5 g/dl Normal HGB 14.8 LAB L100.1400 40-54 % Normal HCT 43.1 LAB L100.1500 80-94 fL Normal MCV 90.2 LAB L100.1600 27.0-32.0 pg Normal MCH 31.0 LAB L100.1700 32-36 g/gl Normal MCHC 34.3 LAB L100.1810 11.6-14.6 % Normal RDW CV 12.2 LAB L100.1820 35.1-43.9 fl Normal RDW SD 39.4 LAB L100.1900 150-450 K/mm3 Low PLT 107 LAB L100.2000 6.2-12.0 fl High MPV 12.1 LAB L100.2100 47-70 % Normal NEUT% 63.2 LAB L100.2200 19-41 % Normal LY% 28.3 LAB L100.2300 0-10 % Normal MONO% 6.4 LAB L100.2400 0-5 % Normal EO% 1.5 LAB L100.2500 0-1 % Normal BASO% 0.4 LAB L100.2550 0.0-0.9 % Normal IM GRAN % 0.200 Result Comment: IG% - Immature Granulocytes (promyelocytes, myelocytes and metamyelocytes) > 1% indicates that a LEFT SHIFT is Present. LAB L100.2620 2.0-7.7 X10 3/uL Normal Absolute Neut 3.5 LAB L100.2720 0.83-4.51 X10 3/ul Normal Absolute Lymph 1.55 Performed By: #### L100.0100 #### [facility] [address] [facility] [place], [place], [id number] LACTIC ACID Collected: 04/30/2018 Status: F Source: [place] 4:29 PM [facility] REPOSITORY Order Comment: Yes/No query for Sepsis Lactate Rule Y TYPE CODE TESTS RESULT OUT OF RANGE REFERENCE UNITS LAB L503.6005 0.4-2.0 mmol/L Normal LACTIC ACID 1.4 Performed By: #### L503.6005 #### [facility] [address] [facility] [place], [place], [address] COMPREHENSIVE METABOLIC Collected: 04/30/2018 Status: F Source: [place] COPE 4:29 PM [facility] REPOSITORY TYPE CODE TESTS RESULT OUT OF RANGE REFERENCE UNITS LAB L501.0100 74-106 mg/dL High GLU 124 Result Comment: Fasting Glucose result from 100 to 125 mg/dL suggests IMPAIRED HOMEOSTASIS per A.D.A. criteria. Please note revised GLUCOSE reference range effective 2017. LAB L501.1000 7-18 mg/dL Normal BUN 15 LAB L501.1100 0.70-1.30 mg/dL Normal CREAT,SERUM 1.17 Result Comment: The validity of the calculated GFR AND GFRAA in patients over 70 years has not been determined. Clinical correlation is essential. LAB L501.1110 >60 mL/min Normal EST GFR 75 Result Comment: Non- GFR Calc LAB L501.1115 >60 mL/min Normal EST GFR - AA 90 Result Comment: GFR Calc LAB L501.1255 ml/min Normal Estimated CRCL 112.00 LAB L501.1300 10-20 RATIO BUN/CRE Normal 12.8 LAB L501.1500 6.4-8. g/dL 2 T PROT Normal 7.2 LAB L501.1800 3.2-5. g/dL 0 ALB Normal 4.2 LAB L501.1950 2.2-4. g/dL 2 GLOB Normal 3.0 LAB L501.2000 0.9-2. RATIO 4 A/G Normal 1.4 LAB L501.2200 8.5-10 mg/dL .1 CA Normal 8.8 LAB L501.4100 15-37 U/L AST Normal 20 LAB L501.4305 45-117 U/L ALK P Normal 103 LAB L501.4405 16-61 U/L ALT Normal 44 LAB L501.4600 0.20-1 mg/dL .00 T BILI Normal 0.40 LAB L501.5300 136-14 mmol/L 5 NA Normal 142 LAB L501.5600 3.5-5. mmol/L 1 K Normal 4.3 LAB L501.5900 98-107 mmol/L CL Normal 104 LAB L501.6100 21.0-3 mmol/L 2.0 CO2 Normal 30.0 LAB L501.6200 5-15 GAP Normal 8 Performed By: #### L500.4050, L501.4010 #### [facility] [address] [place], [address] TROPONIN-I Collected: 04/30/2018 Status: F Source: [place] 4:29 PM [facility] REPOSITORY TYPE CODE TESTS RESULT OUT OF RANGE REFERENCE UNITS LAB L501.4010 <0.045 ng/mL Normal < 0.015 TROPONIN-I Result Comment: TROPONIN-I EXPECTED VALUES <0.045 Negative 0.045 - 0.590 Consistent with Cardiac Damage > OR = 0.600 Critical Value Not every elevated troponin is indicative of OR. These values should be used with clinical judgement in examining the patient's clinical picture for diagnosis. To establish a diagnosis of OR versus myocardial injury, there must be a demonstrated rise and/or fall in the troponin values, in addition to ischemic symptoms, EKG changes, new regional wall motion abnormality, and/or angiographical evidence. PLEASE NOTE: REFERENCE RANGES EDITED 18 Performed By: #### L500.4050, L501.4010 #### [facility] [address] [place], [address] PROTHROMBIN TIME W/INR Collected: 04/30/2018 Status: F Source: [place] 4:29 PM [facility] REPOSITORY TYPE CODE TESTS RESULT OUT OF RANGE REFERENCE UNITS LAB L300.4150 11.7-14.9 SECONDS Normal PROTIME 14.0 LAB L300.4200 Normal INR 1.1 Performed By: #### L300.3900, L300.4310, L300.8000 #### [facility] [address] [place], [address] PARTIAL THROMBOPLAST Collected: 04/30/2018 Status: F Source: [place] TIME 4:29 PM [facility] REPOSITORY TYPE CODE TESTS RESULT OUT OF RANGE REFERENCE UNITS LAB L300.4310 24.1-36.2 Seconds Normal PTT 32.1 Performed By: #### L300.3900, L300.4310, L300.8000 #### [facility] [address] [place], [address] D-DIMER QUANTITATIVE Collected: 04/30/2018 Status: F Source: [place] (DVT/PE) 4:29 PM [facility] REPOSITORY TYPE CODE TESTS RESULT OUT OF RANGE REFERENCE UNITS LAB L300.8000 0.27-0.49 FEU/ug/m Low D-DIMER < 0.27 QUANT Result Comment: NORMAL D-Dimer level (<0.50) indicates no DVT or PE. NORMAL D-Dimer level (<0.50) indicates no DVT or PE. Performed By: #### L300.3900, L300.4310, L300.8000 #### [facility] [address] [place], [address] CHEST PA AND LATERAL Observed: 04/30/2018 Status: F Source: [place] 4:13 PM [facility] REPOSITORY [facility] Imaging Services [address] [facility] [place] [address] Chest PA and Lateral MR#: [id number] Acct: [id number] Name: GLENYS LOOMIS Rep #: [id number] : 1980 M 37 From: Noe Gongora MD PCP: Isai Whitmore MD Status: REG ER Study: Chest PA and Lateral Date of Exam: 04/30/18 Exam# [id number] Ordering Dr: Shanon Evans MD STUDY: X-RAY CHEST REASON FOR EXAM: Male, 37 years old. Central chest pain today, headache 4 days. TECHNIQUE: PA and lateral chest COMPARISON: None. FINDINGS: The lungs are clear and expanded. Normal cardiomediastinal silhouette, oscar and pleural margins. No acute osseous or upper abdominal process. RAD/Chest PA and Lateral IMPRESSION: No acute cardiopulmonary process. Electronically Signed: Noe Gongora, at 17:35 EDT Tel , Service support , CC: Isai Whitmore MD; Shanon Evans MD School Age Lead Teacher: Signed BRAIN/HEAD WITHOUT Observed: 04/30/2018 Status: F Source: [place] CONTRAST 4:13 PM [facility] REPOSITORY [facility] Imaging Services [address] [place] [address] Brain/Head without Contrast MR#: [id number] Acct: [id number] Name: GLENYS LOOMIS Rep #: [id number] : 1980 M 37 From: Carl Dominguez MD PCP: Isai Whitmore MD Status: REG ER Study: Brain/Head without Contrast Date of Exam: 04/30/18 Exam# [id number] Ordering Dr: Shanon Evans MD STUDY: CT BRAIN WITHOUT CONTRAST REASON FOR EXAM: Male, 37 years old. Acute onset left frontoparietal headache. RADIATION DOSAGE (If Supplied By Facility): CTDIvol = ( 44.99 ) mGy, DLP = ( 796.11 ) mGycm TECHNIQUE: Transaxial CT imaging of the brain was performed without administration of intravenous contrast material. Individualized dose optimization techniques were used for this CT. COMPARISON: None. FINDINGS: Normal soft tissue structures. Normal calvarium. Normal size ventricles and extra-axial spaces for the patient's age. Normal white matter tracts of the cerebral hemispheres. Normal basal ganglia and thalami. Normal brainstem. Normal cerebellum. There is no intracranial hemorrhage. There are no findings of an acute ischemic infarction. Normal visualized paranasal sinuses. CT/Brain/Head without Contrast IMPRESSION: Normal unenhanced CT scan of the brain. Electronically Signed: Vinicio Dominguez MD at 17:40 EDT , Service support , CC: Isai Whitmore MD; Shanon Evans MD School Age Lead Teacher: Signed ALLERGIES ALLERGIES DATE TYPE / CODE NAME / CODE REACTION SEVERITY SOURCE 04/30/2018 Drug No Known Unknown [place] [facility] Allergy/4160 Allergies/F00 Hospital 74281(SNOMED [id number](RXNOR Repository CT) M) ENCOUNTERS ENCOUNTERS ADMIT/DISCHARGE ACCOUNT ADMITTING ENCOUNTER LOCATION SOURCE NUMBER CLASS 08/07/2018 [id number] Ambulatory [place] 4 [facility] ing:MFPLAB Repository 07/17/2018 [id number] Ambulatory [place] 0 [facility] ing:LABSPEC Repository 05/02/2018 [id number] Ambulatory [place] 6 [facility] ing:MFPLAB Repository 04/30/2018/ [id number] Emergency [place] 8 5 [facility] ing:ED Repository PAYERS PAYERS ENCOUNTER GUARANTOR PAYER SUBSCRIBER SOURCE 08/07/2018 GLENYS VERONICA R [place] [id number] Insurance:CORESOURCEP TONNIGESDOB: [facility] [place]: [id number] [id number] Repository [address]Ami: [phone]) Date:9687-74-45EV [phone] () [address]VT. [place] [id number]: 08/07/2018 Secondary NOT GIVENUNK [place] Insurance:SELF PAY [facility] Number: Effective Repository Date:2018-08-07 07/17/2018 GLENYS VERONICA R [place] [id number] Insurance:CORESOURCEP TONNIGESDOB: [facility] Number: [id number] [id number] Repository [address]Xjd: ([phone]) Date:9035-48-74XE [phone] () 3[address]GL. [place] [id number]: 07/17/2018 Secondary NOT GIVENUNK [place] Insurance:SELF PAY [facility] Number: Effective Repository Date:2018-07-17 05/02/2018 GLENYS Moe Primary GLENYS R [place] [id number] Insurance:CORESOURCEP TONNIGESDOB: [facility] Number: [id number] [id number] Repository [address]Tgw: [phone]) Date:4348-09-78RI [phone] () [address]MT. [place] [id number]: 05/02/2018 Secondary NOT GIVENUNK [place] Insurance:SELF PAY [facility] Number: Effective Repository Date:2018-05-02 04/30/2018 GLENYS R Primary GLENYS R [place] [id number] Insurance:CORESOURCEP TONNIGESDOB: [facility] Number: [id number] [id number] Repository [address]Xtu: ([phone]) Date:8505-63-49TU [phone] () [address]MT. [place] [id number]: 04/30/2018 Secondary NOT GIVENUNK [place] Insurance:SELF PAY [facility] Number: Effective Repository Date:2018-04-30
== END ==
PROVIDERS: Family Provider Family Medicine; PCP Family Medicine; Visit Provider Family Medicine
DX: E55.9 Vitamin D deficiency, unspecified (principal); R53.83 Other fatigue
CPT/HCPCS: 36415; 82306; 82607

== ENCOUNTER → 2020-01-17 10:07 | Outpatient (CLI) | payer OTHER, SELFPAY ==
--- NOTE | 2020-01-17 10:15 | RAD_ITS ---
STUDY: X-RAY CHEST REASON FOR EXAM: Male, 39 years old. Mid chest pain TECHNIQUE: 2 PA and lateral views of the chest. COMPARISON: 04/30/2018 FINDINGS: The lungs are clear and expanded. There is no demonstrated pleural abnormality. Normal size heart. Normal mediastinum and oscar. Normal visualized pulmonary arteries. Normal visualized aortic arch and descending thoracic aorta. Normal visualized thoracic spine. Normal visualized ribs, clavicles, and shoulders. There is no demonstrated abnormality of the visualized soft tissue structures of the upper abdomen. RAD/Chest PA and Lateral IMPRESSION: No acute pulmonary process Electronically Signed: Vinicio Holman MD at 11:01 EDT , Service support ,
[2020-01-17 12:25] LABS: Absolute Lymphocyte Count 2.26 X10^3/uL (0.83-4.51); Absolute Neutrophil Count 2.7 X10^3/uL (2.0-7.7); Basophil# 0.03 X10^3/uL; Basophil% 0.5 % (0-1); Eosinophil# 0.15 X10^3/uL; Eosinophils% 2.7 % (0-5); Hematocrit 46.4 % (40-54); Lymphocyte # 2.26 X10^3/ul (4.0); Lymphocyte % 40.4 % (19-41); Mean Corp Hgb Conc 34.5 g/dL (32-36); Mean Corpuscular Hgb 31.1 pg (27.0-32.0); Mean Corpuscular Volume 90.1 fL (80-94); Mean Platelet Vol. 11.8 fl (6.2-12.0); Monocyte# 0.42 X10^3/uL; Monocyte% 7.5 % (0-10); NRBC Flagged by Analyzer 0 % (0-5); Neutrophil # 2.73 X10^3/uL (2.7-7.7); Neutrophil % 48.7 % (47-70); Platelet Count 120 K/mm3 (150-450); RBC Distribution Width CV 11.9 % (11.6-14.6); RBC Distribution Width SD 39.1 fl (35.1-43.9); Red Blood Count 5.15 M/mm3 (4.6-6.2); White Blood Count 5.6 K/mm3 (4.4-11.0)
== END ==
PROVIDERS: PCP Family Medicine; Referring Provider Family Medicine; Visit Provider Family Medicine
DX: R07.89 Other chest pain (principal)
CPT/HCPCS: 36415; 71046; 85025